=== PATIENT | male | born 1935 | race American Indian/Alaskan Native ===

== ENCOUNTER 2019-04-28 21:39 | Emergency (ER) | payer MEDICARE ==
--- NOTE | 2019-04-28 21:52 | Emergency Department Report ---
ED Neuro Deficit HPI - General Stated Complaint: STROKE Time Seen by Provider: 04/28/19 21:44 Source: family, EMS - History of Present Illness Initial Comments: Patient is 84 years old male with history of dementia. Patient brought to the emergency room via EMS from home for evaluation of sudden onset of seizures time two. Patient niece stated that patient was sitting eating with them and all of a sudden he started staring to her and stop speaking. She stated that patient leaned towards the right side and then slipped onto the floor. Patient niece stated that patient was in his normal status before this incident. Patient is unable to provide any history at this moment. Stroke protocol immediately initiated. Dr. CHENG from stroke telemetry neurology examined the patient. He indicated that patient is not a TPA ca ndidate. - Related Data Allergies/Adverse Reactions: Allergies Allergy/AdvReac Type Severity Reaction Status Date / Time No Known Allergies Allergy Verified 04/28/19 23:15 ED Review of Systems ROS: Stated complaint: STROKE Other details as noted in HPI Comment: Unobtainable due to pts medical conditions ED Neuro Physical Exam - General General appearance: other (patient is actively vomiting) Suspected Stroke: Yes - Head Head exam: Present: atraumatic, normocephalic, normal inspection - Eye Eye exam: Present: normal appearance - ENT ENT exam: Present: normal exam, normal orophraynx, mucous membranes moist - Neck Neck exam: Present: normal inspection - Respiratory Respiratory exam: Present: normal lung sounds bilaterally - Cardiovascular Cardiovascular Exam: Present: regular rate, normal rhythm, normal heart sounds - GI/Abdominal GI/Abdominal exam: Present: soft, normal bowel sounds. Absent: distended, tend erness, guarding, rebound, rigid, mass, bruit, pulsatile mass, hernia - Neurological Exam Neurological exam: Present: alert - NIHSS Assessment Interval: Baseline 1a. Level of Consciousness: arousable/minor stimuli 1b. LOC Questions: aphasic 1c. LOC Commands: performs no tasks correctly 2. Best Gaze: normal 3. Visual: no visual loss 4. Facial Palsy: normal symmetrical movement 5b. Motor Arm Right: no drift 5a. Motor Arm Left: no drift 6a. Motor Leg Left: no drift 6b. Motor Leg Right: no drift 7. Limb Ataxia: absent 8. Sensory: no response/quadraplegic 9. Best Language: mute/global aphasia 10. Dysarthria: mute/anarrthric 11. Extinction/Inattention: no abnormality Total Score: 12 Stroke Severity: Moderate Stroke - Skin Skin exam: Present: warm, intact, normal color ED Course Vital Signs 04/28/19 04/28/19 04/28/19 22:24 23:00 23:21 Temperature 97.6 F Pulse Rate 94 H 96 H Respiratory 20 17 18 Rate Blood Pressure 158/81 O2 Sat by Pulse 100 98 98 Oximetry 04/28/19 23:31 Temperature Pulse Rate Respiratory 12 Rate Blood Pressure 168/82 O2 Sat by Pulse 99 Oximetry - Reevaluation(s) Reevaluation #1: 04/28/19 23:04 Patient GFR is 27. I discussed the patient was Dr. Washington from stroke telemetry neurology and he advised to transfer patient to another facility for MRA head and neck tonight. Reevaluation #2: 04/28/19 23:44 I discussed the patient with Dr. Hodge, stroke neurologist on site property manager for [facility] through [facility] transfer system. She accepted the patient to be transfer [facility]. - Lab Data Result diagrams: 04/28/19 22:05 04/28/19 22:05 Lab Results 04/28/19 04/28/19 04/28/19 Range/Units 22:05 22:05 22:05 WBC 13.1 H (4.5-11.0) K/mm3 RBC 5.45 H (3.65-5.03) M/mm3 Hgb 14.7 (11.8-15.2) gm/dl Hct 46.2 H (35.5-45.6) % MCV 85 (84-94) fl MCH 27 L (28-32) pg MCHC 32 (32-34) % RDW 14.7 (13.2-15.2) % Plt Count 317 (140-440) K/mm3 Lymph % (Auto) 34.1 (13.4-35.0) % [place] % (Auto) 6.7 (0.0-7.3) % Eos % (Auto) 2.7 (0.0-4.3) % Baso % (Auto) 1.0 (0.0-1.8) % Lymph # 4.4 (1.2-5.4) K/mm3 [place] # 0.9 H (0.0-0.8) K/mm3 Eos # 0.4 (0.0-0.4) K/mm3 Baso # 0.1 (0.0-0.1) K/mm3 Seg Neutrophils % 55.5 (40.0-70.0) % Seg Neutrophils # 7.2 (1.8-7.7) K/mm3 PT 13.7 (12.2-14.9) Sec. INR 1.06 (0.87-1.13) APTT 28.5 (24.2-36.6) Sec. Thrombin Time (15.1-19.6) Sec. Sodium 136 L (137-145) mmol/L Potassium 3.7 (3.6-5.0) mmol/L Chloride 94.6 L (98-107) mmol/L Carbon Dioxide 11 L (22-30) mmol/L Anion Gap 34 mmol/L BUN 23 H (9-20) mg/dL Creatinine 2.3 H (0.8-1.5) mg/dL Estimated GFR 27 ml/min BUN/Creatinine Ratio 10 % Glucose 226 H (75-100) mg/dL POC Glucose (70-105) Calcium 9.1 (8.4-10.2) mg/dL Troponin T < 0.010 (0.00-0.029) ng/mL 04/28/19 04/28/19 Range/Units 22:05 22:32 WBC (4.5-11.0) K/mm3 RBC (3.65-5.03) M/mm3 Hgb (11.8-15.2) gm/dl Hct (35.5-45.6) % MCV (84-94) fl MCH (28-32) pg MCHC (32-34) % RDW (13.2-15.2) % Plt Count (140-440) K/mm3 Lymph % (Auto) (13.4-35.0) % [place] % (Auto) (0.0-7.3) % Eos % (Auto) (0.0-4.3) % Baso % (Auto) (0.0-1.8) % Lymph # (1.2-5.4) K/mm3 [place] # (0.0-0.8) K/mm3 Eos # (0.0-0.4) K/mm3 Baso # (0.0-0.1) K/mm3 Seg Neutrophils % (40.0-70.0) % Seg Neutrophils # (1.8-7.7) K/mm3 PT (12.2-14.9) Sec. INR (0.87-1.13) APTT (24.2-36.6) Sec. Thrombin Time 21.1 H (15.1-19.6) Sec. Sodium (137-145) mmol/L Potassium (3.6-5.0) mmol/L Chloride (98-107) mmol/L Carbon Dioxide (22-30) mmol/L Anion Gap mmol/L BUN (9-20) mg/dL Creatinine (0.8-1.5) mg/dL Estimated GFR ml/min BUN/Creatinine Ratio % Glucose (75-100) mg/dL POC Glucose 206 H (70-105) Calcium (8.4-10.2) mg/dL Troponin T (0.00-0.029) ng/mL - EKG Data -: EKG Interpreted by Me Rate: normal Interpretation: no acute changes - Radiology Data Radiology results: report reviewed - Medical Decision Making Patient is 84 years old male with history of dementia. Patient brought to the emergency room via EMS from home for evaluation of sudden onset of seizures time two. Patient niece stated that patient was sitting eating with them and all of a sudden he started staring to her and stop speaking. She stated that patient leaned towards the right side and then slipped onto the floor. Patient niece stated that patient was in his normal status before this incident. Patient is unable to provide any history at this moment. Stroke protocol immediately initiated. Dr. CHENG from stroke telemetry neurology examined the patient. He indicated that patient is not a TPA candidate. Patient family requested to be transferred to [facility]. Critical Care Time: Yes Critical care time in (mins) excluding proc time.: 30 Critical care attestation.: If time is entered above; I have spent that time in minutes in the direct care of this critically ill patient, excluding procedure time. ED Disposition Clinical Impression: CVA (cerebral vascular accident), Seizure Disposition: [id number]/TX-[id number] ANOTHER TYPE HLTHCARE Is pt being admited?: No Condition: Stable
[2019-04-28] MEDS ORDERED: ONDANSETRON 4 MG/2 ML INJ IV ONE ×2 (22:00→23:00)
--- NOTE | 2019-04-28 22:07 | Emergency Department Report ---
ED Neuro Deficit HPI - General Stated Complaint: STROKE Time Seen by Provider: 04/28/19 21:44 Source: family, EMS - History of Present Illness Initial Comments: [employer] [facility] Date of Service: 04/28/2019 21:52:00 Impression: RO Acute Ischemic Stroke Comments: ams, after seizure, confused since earlier in the week. CTA head.neck and perfusion should be ordered ---CTA head/neck is not possibel as it will cause patinet to go into dialysis ---Recommend transfer for mra head/neck wihout stat ---Keppra 1000 mg IV x 1 Mechanism of Stroke: Possible Thromboembolic Metrics: Last Known Well: 04/26/2019 19:00:00 [employer] Notification Time: 04/28/2019 21:51:18 Arrival Time: 04/28/2019 21:58:11 Stamp Time: 04/28/2019 21:52:00 Time First Login Attempt: 04/28/2019 21:54:13 Video Start Time: 04/28/2019 21:54:13 Symptoms: pt had a seizure, without history of seizure NIHSS Start Assessment Time: 04/28/2019 21:54:53 Patient is not a candidate for tPA. Video End Time: 04/28/2019 22:00:51 CT head showed no acute hemorrhage or acute core infarct. Radiologist was called back for review of advanced imaging on 04/28/2019 22:00:20 ER Physician notified of the decision on thrombolytics management on 04/28/2019 22:00:21 Our recommendations are outlined below. Recommendations: Activate Stroke Protocol Admission/Order Set Stroke/Telemetry Floor Neuro Checks Bedside Swallow Eval DVT Prophylaxis IV Fluids, Normal Saline Head of Bed Below 30 Degrees Euglycemia and Avoid Hyperthermia (PRN Acetaminophen) Hold Antithrombotics for Now Recommended Scan: MRI Head with and Without Contrast Therapies: Physical Therapy, Occupational Therapy, Speech Therapy Assessment When Applicable Dysphaghia Screen: Swallow Evaluation, Bedside DVT prophylaxis: Choice of Primary Team Disposition: Sign Out Sign Out: Discussed with Emergency Department Provider History of Present Illness: Patient was brought by EMS for symptoms of pt had a seizure, without history of seizure diabetes, htn, and has chronic stage IV kidney disease, and left gaze, and had another seizure, he was given two of ativan. he has been more and more confused over the last week. He is at 89. He has had intermittent confusion. CT head showed no acute hemorrhage or acute core infarct. Last seen normal was beyond 4.5 hours of presentation. Examination: 1A: Level of Consciousness - Postures or Unresponsive + 3 1B: Ask Month and Age - Aphasic + 2 1C: Blink Eyes & Squeeze Hands - Performs 0 Tasks + 2 2: Test Horizontal Extraocular Movements - Normal + 0 3: Test Visual Ritter - No Visual Loss + 0 4: Test Facial Palsy (Use Grimace if Obtunded) - Normal symmetry + 0 5A: Test Left Arm Motor Drift - No Drift for 10 Seconds + 0 5B: Test Right Arm Motor Drift - No Drift for 10 Seconds + 0 6A: Test Left Leg Motor Drift - No Drift for 5 Seconds + 0 6B: Test Right Leg Motor Drift - No Drift for 5 Seconds + 0 7: Test Limb Ataxia (FNF/Heel-Byrne) - No Ataxia + 0 8: Test Sensation - Normal; No sensory loss + 0 9: Test Language/Aphasia - Mute/Global Aphasia: No Usable Speech/Auditory Comprehension + 3 10: Test Dysarthria - Normal + 0 11: Test Extinction/Inattention - No abnormality + 0 NIHSS Score: 10 Patient was informed the Neurology Consult would happen via TeleHealth consult by way of interactive audio and video telecommunications and consented to receiving care in this manner. Due to the immediate potential for life-threatening deterioration due to underlying acute neurologic illness, I spent 35 minutes providing critical care. This time includes time for face to face visit via telemedicine, review of medical records, imaging studies and discussion of findings with providers, the patient and/or family. Dr Rich [facility] [employer] Location: left face - Related Data Allergies/Adverse Reactions: Allergies Allergy/AdvReac Type Severity Reaction Status Date / Time No Known Allergies Allergy Unverified 04/28/19 21:44 ED Review of Systems ROS: Stated complaint: STROKE Other details as noted in HPI ED Neuro Physical Exam - General General appearance: other (patient is actively vomiting) ED Course Vital Signs 04/28/19 22:24 Temperature 97.6 F Pulse Rate 94 H Respiratory 20 Rate O2 Sat by Pulse 100 Oximetry - Lab Data Result diagrams: 04/28/19 22:05 04/28/19 22:05 Lab Results 04/28/19 04/28/19 04/28/19 Range/Units 22:05 22:05 22:05 WBC 13.1 H (4.5-11.0) K/mm3 RBC 5.45 H (3.65-5.03) M/mm3 Hgb 14.7 (11.8-15.2) gm/dl Hct 46.2 H (35.5-45.6) % MCV 85 (84-94) fl MCH 27 L (28-32) pg MCHC 32 (32-34) % RDW 14.7 (13.2-15.2) % Plt Count 317 (140-440) K/mm3 Lymph % (Auto) 34.1 (13.4-35.0) % [place] % (Auto) 6.7 (0.0-7.3) % Eos % (Auto) 2.7 (0.0-4.3) % Baso % (Auto) 1.0 (0.0-1.8) % Lymph # 4.4 (1.2-5.4) K/mm3 [place] # 0.9 H (0.0-0.8) K/mm3 Eos # 0.4 (0.0-0.4) K/mm3 Baso # 0.1 (0.0-0.1) K/mm3 Seg Neutrophils % 55.5 (40.0-70.0) % Seg Neutrophils # 7.2 (1.8-7.7) K/mm3 PT 13.7 (12.2-14.9) Sec. INR 1.06 (0.87-1.13) APTT 28.5 (24.2-36.6) Sec. Thrombin Time (15.1-19.6) Sec. Sodium 136 L (137-145) mmol/L Potassium 3.7 (3.6-5.0) mmol/L Chloride 94.6 L (98-107) mmol/L Carbon Dioxide 11 L (22-30) mmol/L Anion Gap 34 mmol/L BUN 23 H (9-20) mg/dL Creatinine 2.3 H (0.8-1.5) mg/dL Estimated GFR 27 ml/min BUN/Creatinine Ratio 10 % Glucose 226 H (75-100) mg/dL POC Glucose (70-105) Calcium 9.1 (8.4-10.2) mg/dL Troponin T < 0.010 (0.00-0.029) ng/mL 04/28/19 04/28/19 Range/Units 22:05 22:32 WBC (4.5-11.0) K/mm3 RBC (3.65-5.03) M/mm3 Hgb (11.8-15.2) gm/dl Hct (35.5-45.6) % MCV (84-94) fl MCH (28-32) pg MCHC (32-34) % RDW (13.2-15.2) % Plt Count (140-440) K/mm3 Lymph % (Auto) (13.4-35.0) % [place] % (Auto) (0.0-7.3) % Eos % (Auto) (0.0-4.3) % Baso % (Auto) (0.0-1.8) % Lymph # (1.2-5.4) K/mm3 [place] # (0.0-0.8) K/mm3 Eos # (0.0-0.4) K/mm3 Baso # (0.0-0.1) K/mm3 Seg Neutrophils % (40.0-70.0) % Seg Neutrophils # (1.8-7.7) K/mm3 PT (12.2-14.9) Sec. INR (0.87-1.13) APTT (24.2-36.6) Sec. Thrombin Time 21.1 H (15.1-19.6) Sec. Sodium (137-145) mmol/L Potassium (3.6-5.0) mmol/L Chloride (98-107) mmol/L Carbon Dioxide (22-30) mmol/L Anion Gap mmol/L BUN (9-20) mg/dL Creatinine (0.8-1.5) mg/dL Estimated GFR ml/min BUN/Creatinine Ratio % Glucose (75-100) mg/dL POC Glucose 206 H (70-105) Calcium (8.4-10.2) mg/dL Troponin T (0.00-0.029) ng/mL Critical care attestation.: If time is entered above; I have spent that time in minutes in the direct care of this critically ill patient, excluding procedure time. ED Disposition Condition: Stable
[2019-04-28 22:13] LABS: Basophils # (Auto) 0.1 K/mm3 (0.0-0.1); Eosinophils # (Auto) 0.4 K/mm3 (0.0-0.4); Eosinophils % (Auto) 2.7 % (0.0-4.3); Hematocrit 46.2 % (35.5-45.6); Hemoglobin 14.7 gm/dl (11.8-15.2); Lymphocytes # (Auto) 4.4 K/mm3 (1.2-5.4); Lymphocytes % (Auto) 34.1 % (13.4-35.0); Mean Corpuscular HGB Conc 32 % (32-34); Mean Corpuscular Volume 85 fl (84-94); Monocytes # (Auto) 0.9 K/mm3 (0.0-0.8); Monocytes % (Auto) 6.7 % (0.0-7.3); Platelet Count 317 K/mm3 (140-440); Red Blood Count 5.45 M/mm3 (3.65-5.03); Red Cell Distribution Width 14.7 % (13.2-15.2)
--- NOTE | 2019-04-28 22:17 | Cat Scan Report ---
CT head/brain wo con INDICATION / CLINICAL INFORMATION: 84 years Male; neuro deficits <6hrs or sx present upon awakening. Seizure; aphasia; leftward gaze TECHNIQUE: Routine CT head without contrast. All CT scans at this location are performed using CT dos e reduction for ALARA by means of automated exposure control. COMPARISON: None. FINDINGS: BRAIN / INTRACRANIAL CONTENTS: No acute hemorrhage, mass effect, midline shift, hydrocephalus, or acu te, large territorial infarct. Moderate cerebral atrophy. There may be a small lacunar infarct in the [place] leftward of midline. There are moderate to extensive areas of decreased attenuation in the white matter of the cerebral he mispheres, as well as the gangliocapsular regions. These are nonspecific findings and may be related to microangiopathy (hypertension, diabetes, atherosclerosis), given the patient's age. It might be di fficult to evaluate for small areas of ischemia without diffusion imaging by MRI. CRANIOCERVICAL JUNCTION: No significant abnormality. ORBITS: No significant abnormality of visualized orbits. SINUSES / MASTOIDS: No significant abnormality the visualized paranasal sinuses or mastoid air cells. ADDITIONAL FINDINGS: Mild atherosclerotic disease is seen in the anterior and posterior circulation. IMPRESSION: 1. No focal mass, hemorrhage, hydrocephalus, or acute, large territorial infarct. Highly recommend di ffusion scan by MRI for further evaluation. This exam was performed as part of a code stroke protocol. The exam was completed on 04/28/2019 8:56 PM. The exam was reviewed at 9:05 PM and Ariadna, the patient's nurse, was notified at 9:15 PM. Signer Name: Paramjit Owusu MD, III Signed: 04/28/2019 10:12 PM Workstation Name: [id number]
[2019-04-28 22:26] LABS: INR 1.06 (0.87-1.13)
[2019-04-28 22:27] LABS: Partial Thromboplastin Time 28.5 Sec. (24.2-36.6)
[2019-04-28 22:35] LABS: BUN/Creatinine Ratio 10; Blood Urea Nitrogen 23 mg/dL (9-20); Calcium 9.1 mg/dL (8.4-10.2); Hemolysis Index 38
[2019-04-28] MEDS ORDERED: ONDANSETRON 4 MG/2 ML INJ ONE (23:14)
[2019-04-28] MEDS ORDERED: PHENYTOIN 1,000 MG in SODIUM CHLORIDE 0.9% 250ML 250 ML IV ONE (23:50)
[2019-04-29] MEDS ORDERED: levETIRAcetam 500 MG in DEXTROSE 5% IN WATER 100 ML IV ONE (00:18)
[2019-04-29 00:35] VITALS: BP 161/83
== END 2019-04-29 01:20 | disposition other institution (70) ==
LOC: ED 21:39
DX: I63.9 Cerebral infarction, unspecified (principal)
CPT/HCPCS: 36415; 70450; 80048; 82962; 84484; 85025; 85610; 85670; 85730; 93005; 93010; 96374; 96375; 96376; 99291; J1953; J2405; J1165; J7050